=== PATIENT | female | born 1965 | race Caucasian/White ===

== ENCOUNTER 2017-01-09 21:56 | Emergency (ER) | payer OTHER ==
[~2017-01-09] VITALS: Ht 165.1 cm; Wt 86.1 kg
[~2017-01-09 21:56] MED LIST: BENADRYL25 MG PO; CLARITIN10 M3 PO; PREDNISONE20 MG PO
[2017-01-09 22:01] VITALS: BP 148/95
== END 2017-01-10 00:23 | disposition home or self-care (01) ==
LOC: EME 21:56
DX: H10.13 Acute atopic conjunctivitis, bilateral (principal); H11.423 Conjunctival edema, bilateral; S05.01XA Injury of conjunctiva and corneal abrasion without foreign body, right eye, initial encounter; S05.02XA Injury of conjunctiva and corneal abrasion without foreign body, left eye, initial encounter; F17.200 Nicotine dependence, unspecified, uncomplicated
CPT/HCPCS: 99281; 99284; J7512

== ENCOUNTER 2017-10-02 03:37 | Emergency (ER) | payer OTHER ==
[~2017-10-02] VITALS: Ht 165.1 cm; Wt 87.1 kg
[2017-10-02 04:07] LABS: HEMATOCRIT 46.8 % (36.0-46.0); MCH 31.4 PG (29.0-34.0); MCHC 34.6 G/DL (30.0-36.0); MCV 90.7 FL (83-99); MEAN PLAT.VOLUME 8.9 uM^3 (9.5-12.4); PLATELET COUNT 312 K/uL (156-360); RBC DIS.WIDTH-CV 11.5 % (11.8-14.6); RBC DIS.WIDTH-SD 38.4 % (39-53); RED BLOOD COUNT 5.16 M/uL (3.80-5.20); WHITE BLOOD COUNT 8.5 K/uL (4.1-10.2)
[2017-10-02 04:18] LABS: CHLORIDE 103 mEq/L (99-109); SODIUM 140 mEq/L (136-147)
[2017-10-02 04:20] LABS: GLUCOSE 104 mg/dL (70-99)
[2017-10-02 04:21] LABS: ANION GAP 14 MEQ/L (2-14)
[2017-10-02 04:23] LABS: GFR ESTIMATE (CALCULATED) > 59 mL/min/
[2017-10-02 04:24] LABS: UREA NITROGEN (BUN) 20 mg/dL (9-23)
[2017-10-02 04:50] LABS: ADD MIUA? NO; BILIRUBIN NEGATIVE; BLOOD NEGATIVE; COLOR YELLOW ((YELLOW)); GLUCOSE (STRIP) NEGATIVE; KETONES NEGATIVE; LEUKOCYTES NEGATIVE; NITRITE NEGATIVE; PROTEIN (STRIP) NEGATIVE; SPECIFIC GRAVITY 1.019 (1.000-1.030); UCUL ADDED? NO; UROBILINOGEN 0.2 MG/DL (0.2-1.0)
[2017-10-02] MEDS ORDERED: NORCO 10/3251 TABLET PO (05:20)
[2017-10-02] MEDS ORDERED: FLEXERIL10 MG PO (05:20)
[2017-10-02 06:00] VITALS: BP 103/55
[2017-10-03] MEDS ORDERED: CITRATE OF MAG296 ML PO (10:33)
== END 2017-10-02 06:15 | disposition home or self-care (01) ==
LOC: EME 03:37
PROVIDERS: Emergency Medicine
DX: M62.830 Muscle spasm of back (principal); M54.5 Low back pain; E03.9 Hypothyroidism, unspecified; F17.200 Nicotine dependence, unspecified, uncomplicated; Z90.710 Acquired absence of both cervix and uterus; Z91.040 Latex allergy status
CPT/HCPCS: 74176; 80048; 81003; 85027; 99281; 99285; J1885; J2270; J2405

== ENCOUNTER 2017-10-03 07:19 | Emergency (ER) | payer OTHER ==
[~2017-10-03] VITALS: Ht 165.1 cm; Wt 86.5 kg
[~2017-10-03 07:19] MED LIST changes: +FLEXERIL10 MG PO; +NORCO 10/3251 TABLET PO
[2017-10-03] MEDS ORDERED: CITRATE OF MAG296 ML PO (10:33)
[2017-10-03 10:45] VITALS: BP 127/74
== END 2017-10-03 10:47 | disposition home or self-care (01) ==
LOC: EME 07:19
DX: M54.42 Lumbago with sciatica, left side (principal); R10.32 Left lower quadrant pain; K59.00 Constipation, unspecified; Z90.710 Acquired absence of both cervix and uterus; F17.200 Nicotine dependence, unspecified, uncomplicated
CPT/HCPCS: 74020; 99281; 99285; J2405; J3010; J7030